=== PATIENT | female | born 1970 | race American Indian/Alaskan Native ===

== ENCOUNTER 2017-01-18 13:43 | Emergency (ER) | payer MEDICAID, OTHER ==
[2017-01-18 14:25] LABS: Basophils % (Auto) 0.3 % (0.0-1.8); Eosinophils % (Auto) 0.1 % (0.0-4.3); Hematocrit 32.2 % (30.3-42.9); Hemoglobin 9.8 gm/dl (10.1-14.3); Mean Corpuscular HGB Conc 30 % (30-34); Mean Corpuscular Volume 78 fl (79-97); Platelet Count 244 K/mm3 (140-440); Red Blood Count 4.14 M/mm3 (3.65-5.03); Red Cell Distribution Width 17.2 % (13.2-15.2); White Blood Count 9.9 K/mm3 (4.5-11.0)
[2017-01-18 14:31] LABS: Mean Corpuscular Hemoglobin 24 pg (28-32)
[2017-01-18 15:33] LABS: Alanine Aminotransferase 10 units/L (7-56); Albumin 3.6 g/dL (3.9-5); Albumin/Globulin Ratio 0.9 %; Alkaline Phosphatase 72 units/L (35-129); Anion Gap 15 mmol/L; BUN/Creatinine Ratio 16; Blood Urea Nitrogen 11 mg/dL (7-17); Calcium 9.1 mg/dL (8.4-10.2); Carbon Dioxide 25 mmol/L (22-30); Chloride 106.2 mmol/L (98-107); Glucose 121 mg/dL (65-100); Lipase 36 units/L (13-60); Potassium 4.2 mmol/L (3.6-5.0); Sodium 142 mmol/L (137-145); Total Protein 7.7 g/dL (6.3-8.2)
[2017-01-18 16:56] LABS: Bilirubin,Urine NEG (Negative); Blood,Urine NEG (Negative); Ketones,Urine NEG (Negative); Leukocyte Esterase,Urine NEG (Negative); Nitrite,Urine NEG (Negative); Protein,Urine <15 mg/dL mg/dL (Negative); WBC,Urine < 1.0 /HPF (0.0-6.0)
[2017-01-18] MEDS ORDERED: MORPHINE IV ONE (21:44)
[2017-01-18] MEDS ORDERED: TORADOL IV ONE (21:44)
[2017-01-18] MEDS ORDERED: ZOFRAN IV ONE (21:44)
[2017-01-18] MEDS ORDERED: NACL 0.9% 1000 ML 1,000 ML IV ONE (21:44)
--- NOTE | 2017-01-18 21:49 | Emergency Department Report ---
HPI - General Chief Complaint: Abdominal Pain Time Seen by Provider: 01/18/17 21:38 - HPI HPI: Room 18 The patient is a 46-year-old female presenting with a chief complaint of left flank pain. The patient states this morning while she was already awake at approximately 08:00 she developed sudden onset of sharp left flank pain radiating to the left abdomen. Patient admits to nausea and vomiting. Patient also missed his dysuria which began this morning. Patient describes pain as sharp and constant in nature. The patient currently gives her pain a score of 10/10 Location: Left flank Duration: Constant since 08:00 Quality: Sharp Severity: 10/10 Modifying factors: [see above] Context: [see above] Mode of transportation: [not driving] ED Past Medical Hx - Past Medical History Previous Medical History?: No Hx Diabetes: No (history of diabetes per patient but has since resolved) - Surgical History Past Surgical History?: Yes Hx Cholecystectomy: Yes - Family History Family history: no significant - Social History Smoking Status: Former Smoker (none for over 5 years) Substance Use Type: None - Medications Home Medications: Home Medications Medication Instructions Recorded Confirmed Last Taken Type Phenazopyridine [Pyridium] 200 mg PO TID #6 tablet 07/12/13 Unknown Rx Sulfamethoxazole/Trimethoprim 1 each PO BID #20 tablet 07/12/13 Unknown Rx [Bactrim Ds] metFORMIN [Glucophage] 500 mg PO BID #60 tablet 07/12/13 Unknown Rx HYDROcodone/ACETAMINOPHEN [[place] 1 - 2 each PO Q4-6H PRN #14 tablet 01/19/17 Unknown Rx 5-325 Tablet] Promethazine [Phenergan TAB] 25 mg PO Q6HR PRN #20 tab 01/19/17 Unknown Rx Promethazine [Phenergan] 25 mg MI Q6HR PRN #5 supp.rect 01/19/17 Unknown Rx ED Review of Systems ROS: Stated complaint: SIDE PAIN/VOMITING Other details as noted in HPI Comment: All other systems reviewed and negative Constitutional: denies: chills, fever Eyes: denies: eye pain, eye discharge, vision change ENT: denies: ear pain, throat pain Respiratory: denies: cough, shortness of breath, wheezing Cardiovascular: denies: chest pain, palpitations Endocrine: no symptoms reported Gastrointestinal: abdominal pain, nausea, vomiting Genitourinary: dysuria. denies: hematuria Musculoskeletal: back pain. denies: joint swelling, arthralgia Skin: denies: rash, lesions Neurological: denies: headache, weakness, paresthesias Psychiatric: denies: anxiety, depression Hematological/Lymphatic: denies: easy bleeding, easy bruising Physical Exam - Physical Exam Vital Signs: Vital Signs 01/18/17 13:55 Temperature 98.7 F Pulse Rate 77 Respiratory 14 Rate Blood Pressure 124/80 [Right] O2 Sat by Pulse 99 Oximetry Physical Exam: GENERAL: The patient is well-developed well-nourished female lying on stretcher not appearing to be in acute distress. [] HEENT: Normocephalic. Atraumatic. Extraocular motions are intact. Patient has moist mucous membranes. NECK: Supple. Trachea midline CHEST/LUNGS: Clear to auscultation. There is no respiratory distress noted. HEART/CARDIOVASCULAR: Regular. There is no tachycardia. There is no gallop rub or murmur. ABDOMEN: Abdomen is soft, with trace discomfort to palpation in the left upper quadrant. Patient has normal bowel sounds. There is no abdominal distention. SKIN: There is no rash. There is no edema. There is no diaphoresis. NEURO: The patient is awake, alert, and oriented. The patient is cooperative. The patient has normal speech MUSCULOSKELETAL: There is left CVA tenderness. There is no evidence of acute injury. ED Course Vital Signs 01/18/17 13:55 Temperature 98.7 F Pulse Rate 77 Respiratory 14 Rate Blood Pressure 124/80 [Right] O2 Sat by Pulse 99 Oximetry ED Medical Decision Making - Lab Data Result diagrams: 01/18/17 14:10 01/18/17 14:10 Laboratory Tests 01/18/17 01/18/17 01/18/17 14:10 14:10 16:17 WBC 9.9 RBC 4.14 Hgb 9.8 L Hct 32.2 MCV 78 L MCH 24 L MCHC 30 RDW 17.2 H Plt Count 244 Lymph % (Auto) 12.0 L [place] % (Auto) 5.3 Eos % (Auto) 0.1 Baso % (Auto) 0.3 Lymph # 1.2 [place] # 0.5 Eos # 0.0 Baso # 0.0 Seg Neutrophils % 82.3 H Seg Neutrophils # 8.2 H Sodium 142 Potassium 4.2 Chloride 106.2 Carbon Dioxide 25 Anion Gap 15 BUN 11 Creatinine 0.7 Estimated GFR > 60 BUN/Creatinine Ratio 16 Glucose 121 H Calcium 9.1 Total Bilirubin 0.20 AST 15 ALT 10 Alkaline Phosphatase 72 Total Protein 7.7 Albumin 3.6 L Albumin/Globulin Ratio 0.9 Lipase 36 Urine Color Yellow Urine Turbidity Clear Urine pH 7.0 Ur Specific [place] 1.014 Urine Protein <15 mg/dl Urine Glucose (UA) Neg Urine Ketones Neg Urine Blood Neg Urine Nitrite Neg Urine Bilirubin Neg Urine Urobilinogen 2.0 Ur Leukocyte Esterase Neg Urine WBC (Auto) < 1.0 Urine RBC (Auto) 1.0 U Epithel Cells (Auto) 1.0 - Radiology Data Radiology results: report reviewed (CT abdomen and pelvis), image reviewed (CT abdomen and pelvis) CT abdomen and pelvis (regular radiologist)-no evidence of renal stones, hydronephrosis or normal renal enhancement. Cholecystectomy. No acute process in the abdomen and pelvis. 3.1 cm left ovarian cyst - Differential Diagnosis renal colic, aortic dissection, pyelonephritis, UTI Critical care attestation.: If time is entered above; I have spent that time in minutes in the direct care of this critically ill patient, excluding procedure time. ED Disposition Clinical Impression: Left flank pain, Left ovarian cyst Disposition: TO HOME OR SELFCARE Is pt being admited?: No Does the pt Need Aspirin: No Condition: Stable Instructions: Abdominal Pain (ED), Ovarian Cyst (ED) Additional Instructions: Return to the emergency department immediately should you develop worsening symptoms, fever, inability to tolerate food or liquid or any other concerns. Prescriptions: HYDROcodone/ACETAMINOPHEN [[place] 5-325 Tablet] 1 - 2 each PO Q4-6H PRN #14 tablet PRN Reason: Pain Promethazine [Phenergan TAB] 25 mg PO Q6HR PRN #20 tab PRN Reason: Nausea Promethazine [Phenergan] 25 mg MI Q6HR PRN #5 supp.rect PRN Reason: Vomiting Referrals: NAVI VIVAR MD [Primary Care Provider] - 3-5 Days Time of Disposition: 00:55
[2017-01-18] MEDS ORDERED: MORPHINE ONE ×3 (21:59→22:36)
[2017-01-18] MEDS ORDERED: SUBLIMAZE IV ONE (23:38)
--- NOTE | 2017-01-19 00:46 | Cat Scan Report ---
FINAL REPORT EXAM: CT ABDOMEN PELVIS WO/W CON HISTORY: left flank pain TECHNIQUE: Pre and post IV contrast imaging was obtained of the abdomen pelvis with additional 1.25 millimeter thin cut imaging. Coronal and parasagittal reconstructions were reviewed also. FINDINGS: The lung bases are clear. There is a small hiatal hernia at the GE junction. Pleural fluid is not seen. The gallbladder has been removed. The biliary tree appears normal. The liver, pancreas, spleen, and adrenal glands appear normal. The kidneys show no evidence of stones or hydronephrosis. Both kidneys enhance normally. The vascular structures enhance normally. The bowel loops are normal in caliber and course. The appendix is not enlarged. There is no evidence of adenopathy. The uterus and bladder appear normal. There is a left ovarian cyst measuring 3.1 cm in diameter. Free fluid is not seen. The skeletal structures are unremarkable. IMPRESSION: No evidence of renal stones, hydronephrosis or abnormal renal enhancement. Cholecystectomy. No acute process in the abdomen and pelvis. 3.1 cm left ovarian cyst.
[2017-01-19 01:21] VITALS: BP 99/68
== END 2017-01-19 01:20 | disposition home or self-care (01) ==
LOC: ED 13:43
DX: N83.202 Unspecified ovarian cyst, left side (principal); R10.12 Left upper quadrant pain; Z90.49 Acquired absence of other specified parts of digestive tract; Z87.891 Personal history of nicotine dependence
CPT/HCPCS: 36415; 74178; 80053; 81001; 83690; 85025; 96361; 96374; 96375; 99284; J1885; J2270; J2405; J3010; J7030; Q9967

== ENCOUNTER 2019-07-14 13:32 | Observation (INO) | payer MEDICAID ==
[2019-07-14] MEDS ORDERED: ASPIRIN 81 MG TAB CHEW PO ONE (13:37)
[2019-07-14] MEDS ORDERED: NITROGLYCERIN 0.4 MG TAB SUBL SL ONE (13:37)
--- NOTE | 2019-07-14 13:37 | Emergency Department Report ---
ED Chest Pain HPI - General Stated Complaint: STV Time Seen by Provider: 07/14/19 13:34 Source: patient Mode of arrival: Stretcher Limitations: No Limitations - History of Present Illness Initial Comments: Ms. Zuniga is a 49-year-old female without significant past medical history who presents with sudden onset of dizziness chest pain mild shortness of breath. She was walking through the house when all of a sudden the symptoms occurred. EMS discovered SVT rate 230 bpm. After 6 mg of adenosine, SVT converted to sinus tachycardia with sinus arrhythmia. Patient had moderately severe pain middle chest. Pain felt as if her heart was going to explode. Pain radiated to left arm. Pain has subsided after treatment. No previous history of heart disease. She receives medical care at [facility]. No known family history of heart disease. Mother is . Father is . Mother had history of hypertension. EMS rhythm strip reveals sinus tachycardia sinus arrhythmia after cardioversion MD Complaint: chest pain -: Sudden Onset: during exertion Pain Location: left chest Severity: moderate Quality: pressure Consistency: now resolved Improves With: other (Adenosine SVT conversion) Worsens With: nothing Other Symptoms: other (Dizziness chest pain) - Related Data Home Medications Medication Instructions Recorded Confirmed Last Taken No Known Home Medications [No 07/14/19 07/14/19 Unknown Reported Home Medications] Allergies Allergy/AdvReac Type Severity Reaction Status Date / Time No Known Allergies Allergy Verified 01/18/17 13:56 Heart Score - HEART Score History: Moderately suspicious EKG: Non-specific Age: 45-65 Risk factors: No known risk factors Troponin: < normal limit HEART Score: 3 ED Review of Systems ROS: Stated complaint: STV Other details as noted in HPI Comment: All other systems reviewed and negative Constitutional: denies: fever, malaise Respiratory: shortness of breath. denies: cough Cardiovascular: chest pain Gastrointestinal: denies: abdominal pain, nausea, vomiting Neurological: denies: headache ED Past Medical Hx - Past Medical History Previous Medical History?: No Hx Diabetes: No (history of diabetes per patient but has since resolved) - Surgical History Past Surgical History?: Yes Hx Cholecystectomy: Yes - Family History Family history: hypertension - Social History Smoking Status: Former Smoker (none for over 5 years) Substance Use Type: None - Medications Home Medications: Home Medications Medication Instructions Recorded Confirmed Last Taken Type No Known Home Medications [No 07/14/19 07/14/19 Unknown History Reported Home Medications] ED Physical Exam - General General appearance: alert, in no apparent distress - Head Head exam: Present: atraumatic, normocephalic - Eye Eye exam: Present: normal appearance - ENT ENT exam: Present: mucous membranes moist - Neck Neck exam: Present: normal inspection, full ROM - Respiratory Respiratory exam: Present: normal lung sounds bilaterally. Absent: respiratory distress, wheezes, rales, rhonchi - Cardiovascular Cardiovascular Exam: Present: normal rhythm, tachycardia, normal heart sounds. Absent: systolic murmur, diastolic murmur, rubs, gallop - GI/Abdominal GI/Abdominal exam: Present: soft, normal bowel sounds. Absent: distended, tenderness, guarding, rebound - Extremities Exam Extremities exam: Present: normal inspection - Neurological Exam Neurological exam: Present: alert, oriented X3 - Psychiatric Psychiatric exam: Present: normal affect, normal mood - Skin Skin exam: Present: warm, dry, intact, normal color. Absent: rash ED Course Vital Signs 07/14/19 07/14/19 07/14/19 13:47 13:56 17:15 Temperature 98 F Pulse Rate 115 H 111 H 82 Respiratory 16 16 Rate Blood Pressure 106/64 106/64 Blood Pressure 111/74 [Left] O2 Sat by Pulse 100 97 Oximetry ED Medical Decision Making - Lab Data Result diagrams: 07/14/19 13:55 07/14/19 13:55 - EKG Data 07/14/19 13:45 EKG obtained 1341 Sinus tachycardia rate 115 bpm normal axis normal intervals no ST elevation nonspecific T wave pattern diffuse biphasic T waves - Radiology Data Radiology results: report reviewed AP portable chest 1 view no significant change no acute findings CT angios chest negative for pulmonary embolism negative for pneumonia - Medical Decision Making Ms. Zuniga presents with lightheadedness pain shortness of breath. EMS discovered SVT heart rate 230 bpm. Converted with adenosine. Due to increasing troponin values, patient will need cardiac evaluation. Admitted to the hospitalist service. Dr. Clark qa manager on-call recommended Lovenox 40 mg daily aspirin and Lexiscan in the morning. Critical care attestation.: If time is entered above; I have spent that time in minutes in the direct care of this critically ill patient, excluding procedure time. ED Disposition Clinical Impression: SVT (supraventricular tachycardia), Acute coronary syndrome Disposition: [id number] OP ADMIT IP TO THIS HOSP Is pt being admited?: Yes Does the pt Need Aspirin: No Condition: Stable
--- NOTE | 2019-07-14 14:08 | XRay Report ---
CHEST 1 VIEW INDICATION / CLINICAL INFORMATION: Chest Pain. COMPARISON: None available. FINDINGS: SUPPORT DEVICES: None. HEART / MEDIASTINUM: No significant abnormality. LUNGS / PLEURA: No significant pulmonary or pleural abnormality. No pneumothorax. ADDITIONAL FINDINGS: No significant additional findings. IMPRESSION: 1. No significant change Signer Name: Ganesh Olivera MD Signed: 07/14/2019 2:03 PM Workstation Name: [id number]
[2019-07-14 14:12] LABS: Basophils # (Auto) 0.1 K/mm3 (0.0-0.1); Eosinophils % (Auto) 0.3 % (0.0-4.3); Hematocrit 35.1 % (30.3-42.9); Hemoglobin 10.8 gm/dl (10.1-14.3); Lymphocytes # (Auto) 0.7 K/mm3 (1.2-5.4); Lymphocytes % (Auto) 9.5 % (13.4-35.0); Mean Corpuscular HGB Conc 31 % (30-34); Mean Corpuscular Volume 78 fl (79-97); Monocytes # (Auto) 0.4 K/mm3 (0.0-0.8); Monocytes % (Auto) 4.6 % (0.0-7.3); Platelet Count 226 K/mm3 (140-440); Red Blood Count 4.52 M/mm3 (3.65-5.03)
[2019-07-14 14:22] LABS: Red Cell Distribution Width 20.2 % (13.2-15.2)
[2019-07-14 14:24] LABS: Alanine Aminotransferase 12 units/L (7-56); Albumin 3.5 g/dL (3.9-5); BUN/Creatinine Ratio 17; Blood Urea Nitrogen 10 mg/dL (7-17); Hemolysis Index 1
--- NOTE | 2019-07-14 17:03 | Cat Scan Report ---
CT angiography of the chest with 2-D reconstructions INDICATION: Chest pain and shortness of breath x1 day Thin section axial images were obtained as well as 2-D reformatted MIP images in all 3 planes FINDINGS: There is no hilar or mediastinal adenopathy. No pleural or pericardial effusion. Lung windo ws show no nodules, masses or infiltrates. There is no thoracic aortic aneurysm or dissection present . Routine axial images as well as 2-D reconstructions through the pulmonary arteries show no evidence of emboli. IMPRESSION: Negative chest CTA. No PTE or pneumonia. Automated exposure control was utilized to diminish radiation dose. Signer Name: Ganesh Olivera MD Signed: 07/14/2019 4:59 PM Workstation Name: [id number]
[2019-07-14 17:33] LABS: Chol/HDL Ratio 3.46 %
[2019-07-14] MEDS ORDERED: ENOXAPARIN 40 MG/0.4 ML INJ SUB-Q ONE (17:38)
--- NOTE | 2019-07-14 20:43 | History and Physical Report ---
History of Present Illness Date of examination: 07/14/19 Date of admission: 07/14/19 17:39 Chief complaint: Chest pain and Palpitations 2 hours History of present illness: 49-year-old female without significant past medical history who presents with sudden onset of dizziness chest pain mild shortness of breath. She was walking through the house when all of a sudden the symptoms occurred. EMS discovered SVT rate 230 bpm. After 6 mg of adenosine, SVT converted to sinus tachycardia with sinus arrhythmia. Patient had moderately severe pain middle chest. Pain felt as if her heart was going to explode. Pain radiated to left arm. Pain has subsided after treat ment. No previous history of heart disease. She receives medical care at [facility]. No known family history of heart disease. Mother is . Father is . Mother had history of hypertension. EMS rhythm strip reveals sinus tachycardia sinus arrhythmia after cardioversion MD Complaint: chest pain -: Sudden Onset: during exertion Pain Location: left chest Severity: moderate Quality: pressure Consistency: now resolved Improves With: other (Adenosine SVT conversion) Worsens With: nothing Other Symptoms: other (Dizziness chest pain) HEART Score: 3 - Past Medical History Previous Medical History?: No Diabetes: No (history of diabetes per patient but has since resolved) Surgical History Past Surgical History?: Yes Hx Cholecystectomy: Yes Family History Family history: hypertension Social History Smoking Status: Former Smoker (none for over 5 years) Substance Use Type: None - Medications Home Medications: Home Medications Medication Instructions Recorded Confirmed Last Taken Type No Known Home Medications [No 07/14/19 07/14/19 Unknown History Reported Home Medications] Review of Systems ROS: Stated complaint: STV Other details as noted in HPI Comment: All other systems reviewed and negative Constitutional: denies: fever, malaise Respiratory: shortness of breath. denies: cough Cardiovascular: chest pain Gastrointestinal: denies: abdominal pain, nausea, vomiting Neurological: denies: headache PUI?: No Medications and Allergies Allergies Allergy/AdvReac Type Severity Reaction Status Date / Time No Known Allergies Allergy Verified 01/18/17 13:56 Home Medications Medication Instructions Recorded Confirmed Last Taken Type No Known Home Medications [No 07/14/19 07/14/19 Unknown History Reported Home Medications] Exam - Constitutional Vitals: Temp Pulse Resp BP Pulse Ox 98 F 80 16 113/68 100 07/14/19 13:47 07/14/19 18:15 07/14/19 18:15 07/14/19 18:15 07/14/19 18:15 General appearance: Present: mild distress, well-nourished - EENT Eyes: Present: PERRL ENT: hearing intact, clear oral mucosa - Neck Neck: Present: supple, normal ROM - Respiratory Respiratory effort: normal Respiratory: bilateral: CTA - Cardiovascular Heart rate: 78 Rhythm: regular Heart Sounds: Present: S1 & S2. Absent: rub, click - Extremities Extremities: no ischemia, pulses intact, pulses symmetrical, No edema Peripheral Pulses: within normal limits - Abdominal General gastrointestinal: Present: soft, non-tender, non-distended, normal bowel sounds Female genitourinary: Present: normal - Rectal Rectal Exam: deferred - Integumentary Integumentary: Present: clear, warm, dry - Musculoskeletal Musculoskeletal: gait normal, strength equal bilaterally - Psychiatric Psychiatric: appropriate mood/affect, intact judgment & insight - Neurologic Neurologic: CNII-XII intact, moves all extremities - Allied Health Allied health notes reviewed: nursing, case management MONTEZ score - Montez Score Aspirin use within the Past 7 Days: (0) No 3 or more CAD Risk Factors: (0) No 2 or more Angina events in past 24 hrs: (0) No Known CAD with more than 50% Stenosis: (0) No ST Deviation Greater than 0.5mm: (0) No Results - Labs CBC & Chem 7: 07/14/19 21:35 07/14/19 13:55 Labs: Laboratory Last Values WBC 7.9 K/mm3 (4.5-11.0) 07/14/19 13:55 RBC 4.52 M/mm3 (3.65-5.03) 07/14/19 13:55 Hgb 10.8 gm/dl (10.1-14.3) 07/14/19 13:55 Hct 35.1 % (30.3-42.9) 07/14/19 13:55 MCV 78 fl (79-97) L 07/14/19 13:55 MCH 24 pg (28-32) L 07/14/19 13:55 MCHC 31 % (30-34) 07/14/19 13:55 RDW 20.2 % (13.2-15.2) H 07/14/19 13:55 Plt Count 226 K/mm3 (140-440) 07/14/19 13:55 Lymph % (Auto) 9.5 % (13.4-35.0) L 07/14/19 13:55 [place] % (Auto) 4.6 % (0.0-7.3) 07/14/19 13:55 Eos % (Auto) 0.3 % (0.0-4.3) 07/14/19 13:55 Baso % (Auto) 1.0 % (0.0-1.8) 07/14/19 13:55 Lymph # 0.7 K/mm3 (1.2-5.4) L 07/14/19 13:55 [place] # 0.4 K/mm3 (0.0-0.8) 07/14/19 13:55 Eos # 0.0 K/mm3 (0.0-0.4) 07/14/19 13:55 Baso # 0.1 K/mm3 (0.0-0.1) 07/14/19 13:55 Seg Neutrophils % 84.6 % (40.0-70.0) H 07/14/19 13:55 Seg Neutrophils # 6.7 K/mm3 (1.8-7.7) 07/14/19 13:55 D-Dimer 508.23 ng/mlDDU (0-234) H 07/14/19 13:55 Sodium 137 mmol/L (137-145) 07/14/19 13:55 Potassium 3.9 mmol/L (3.6-5.0) 07/14/19 13:55 Chloride 105.4 mmol/L (98-107) 07/14/19 13:55 Carbon Dioxide 17 mmol/L (22-30) L 07/14/19 13:55 Anion Gap 19 mmol/L 07/14/19 13:55 BUN 10 mg/dL (7-17) 07/14/19 13:55 Creatinine 0.6 mg/dL (0.7-1.2) L 07/14/19 13:55 Estimated GFR > 60 ml/min 07/14/19 13:55 BUN/Creatinine Ratio 17 % 07/14/19 13:55 Glucose 189 mg/dL (65-100) H 07/14/19 13:55 Calcium 9.0 mg/dL (8.4-10.2) 07/14/19 13:55 Total Bilirubin 0.20 mg/dL (0.1-1.2) 07/14/19 13:55 AST 19 units/L (5-40) 07/14/19 13:55 ALT 12 units/L (7-56) 07/14/19 13:55 Alkaline Phosphatase 82 units/L (35-129) 07/14/19 13:55 Troponin T 0.032 ng/mL (0.00-0.029) H D 07/14/19 16:42 NT-Pro-B Natriuret Pep 7.45 pg/mL (0-450) 07/14/19 13:55 Total Protein 8.2 g/dL (6.3-8.2) 07/14/19 13:55 Albumin 3.5 g/dL (3.9-5) L 07/14/19 13:55 Albumin/Globulin Ratio 0.7 % 07/14/19 13:55 Triglycerides 114 mg/dL (2-149) 07/14/19 16:42 Cholesterol 135 mg/dL (50-199) 07/14/19 16:42 LDL Cholesterol Direct 88 mg/dL (50-130) 07/14/19 16:42 HDL Cholesterol 39 mg/dL (40-59) L 07/14/19 16:42 Cholesterol/HDL Ratio 3.46 % 07/14/19 16:42 Short CBC 07/14/19 07/14/19 Range/Units 13:55 21:35 WBC 7.9 (4.5-11.0) K/mm3 Hgb 10.8 9.6 L (10.1-14.3) gm/dl Hct 35.1 31.2 (30.3-42.9) % Plt Count 226 237 (140-440) K/mm3 BMP 07/14/19 13:55 Sodium 137 Potassium 3.9 Chloride 105.4 Carbon Dioxide 17 L BUN 10 Creatinine 0.6 L Glucose 189 H Calcium 9.0 Cardiac Enzymes 07/14/19 07/14/19 07/14/19 Range/Units 13:55 16:42 21:20 Troponin T < 0.010 0.032 H D < 0.010 (0.00-0.029) ng/mL 07/15/19 Range/Units 04:37 Troponin T < 0.010 (0.00-0.029) ng/mL Liver Function 07/14/19 Range/Units 13:55 Total Bilirubin 0.20 (0.1-1.2) mg/dL AST 19 (5-40) units/L ALT 12 (7-56) units/L Alkaline Phosphatase 82 (35-129) units/L Albumin 3.5 L (3.9-5) g/dL - Imaging and Cardiology EKG: report reviewed (SVT ) Chest x-ray: report reviewed (NAF) CT scan - abdomen: report reviewed Imaging and Cardiology: CTA chest FINDINGS: There is no hilar or mediastinal adenopathy. No pleural or pericardial effusion. Lung windows show no nodules, masses or infiltrates. There is no thoracic aortic aneurysm or dissection present. Routine axial images as well as 2-D reconstructions through the pulmonary arteries show no evidence of emboli. IMPRESSION: Negative chest CTA. No PTE or pneumonia. Assessment and Plan Advance Directives: Yes - Patient Problems (1) Acute coronary syndrome Current Visit: Yes Status: Acute Plan to address problem: Chest pain w/u Chest pain sec to SVT Serial troponins Stress test in AM (2) SVT (supraventricular tachycardia) Current Visit: Yes Status: Acute Plan to address problem: Resolved Cardizem drip PO Cardizem initiated Cardiology consult (3) NSTEMI (non-ST elevated myocardial infarction) Current Visit: Yes Status: Acute Plan to address problem: Elevated second troponin IV Heparin started (4) DVT prophylaxis Current Visit: Yes Status: Acute Plan to address problem: On Heparin drip
[2019-07-14] MEDS ORDERED: ACETAMINOPHEN 325 MG TAB PO PRN (21:00)
[2019-07-14] MEDS ORDERED: ONDANSETRON 4 MG/2 ML INJ IV PRN (21:00)
[2019-07-14] MEDS ORDERED: HYDROmorphone 1 MG/1 ML INJ IV PRN (21:00)
[2019-07-14] MEDS ORDERED: SODIUM CHLORIDE 0.9% 1000 ML 1,000 ML IV SCH (21:00)
[2019-07-14] MEDS ORDERED: oxyCODONE /ACETAMINOPHEN 5-325MG TAB PO PRN (21:00)
[2019-07-14] MEDS ORDERED: HEPARIN 10,000 UNITS/10 ML VIAL IV ONE ×2 (21:29→22:00)
[2019-07-14] MEDS ORDERED: dilTIAZem/D5W 100 MG/100 ML BAG IV SCH (22:00)
[2019-07-14] MEDS ORDERED: HEPARIN/ 0.45% NACL DRIP 25,000 UNIT/500 ML BAG IV SCH (22:00)
[2019-07-14 22:03] LABS: Hematocrit 31.2 % (30.3-42.9); Hemoglobin 9.6 gm/dl (10.1-14.3)
[2019-07-14 22:13] LABS: INR 0.93 (0.87-1.13)
[2019-07-14 22:14] LABS: Partial Thromboplastin Time 23.2 Sec. (24.2-36.6)
[2019-07-14] MEDS: FAMOTIDINE 20 MG TAB PO SCH (23:45)
[2019-07-14] MEDS: dilTIAZem CD 120 MG CAP PO SCH (23:45)
[2019-07-15] MEDS: INSULIN LISPRO 100 UNIT/ML SUB-Q SCH ×3 (00:06→12:35)
[2019-07-15] MEDS ORDERED: REGADENOSON 0.4 MG/5 ML INJ IV ONE (07:29)
--- NOTE | 2019-07-15 10:55 | Consultation ---
History of Present Illness Consult date: 07/15/19 Requesting physician: JENNY BROWN Consult reason: other (SVT; ACS) History of present illness: The pt is a 49-year-old female with no known significant past medical history. She presented with c/o sudden onset of dizziness, chest pain and palpations. She was walking through the house when all of a sudden the symptoms occurred. Upon EMS arrival, pt found to be in SVT with HR 230 bpm. Pt was given 6mg IV adenosine and converted to ST. Pt maintained NSR overnight and was scheduled for stress test today. Past History Past Medical History: No medical history Medications and Allergies Allergies Allergy/AdvReac Type Severity Reaction Status Date / Time No Known Allergies Allergy Verified 01/18/17 13:56 Home Medications Medication Instructions Recorded Confirmed Last Taken Type No Known Home Medications [No 07/14/19 07/14/19 Unknown History Reported Home Medications] Active Meds: Active Medications Acetaminophen (Tylenol) 650 mg PO Q4H PRN PRN Reason: Pain MILD(1-3)/Fever >100.5/DUQUE Diltiazem HCl (Cardizem Cd) 120 mg PO QDAY RIOS Last Admin: 07/14/19 23:45 Dose: 120 mg Documented by: Famotidine (Pepcid) 20 mg PO BID RIOS Last Admin: 07/14/19 23:45 Dose: 20 mg Documented by: Hydromorphone HCl (Dilaudid) 0.5 mg IV Q3H PRN PRN Reason: Pain , Severe (7-10) Sodium Chloride (Nacl 0.9% 1000 Ml) 1,000 mls @ 75 mls/hr IV DIRECT RIOS Last Admin: 07/15/19 00:40 Dose: 75 mls/hr Documented by: Diltiazem HCl (Cardizem/D5w 100mg/100ml) 100 mg in 100 mls @ 5 mls/hr IV TITR RIOS Heparin Sodium/Sodium Chloride (Heparin/ 0.45% Nacl-25,000 Unit/500 Ml) 25,000 unit in 500 mls @ 20 mls/hr IV TITRATE RIOS; Protocol Last Admin: 07/15/19 00:11 Dose: 1,000 units/hr, 20 mls/hr Documented by: Insulin Human Lispro (Humalog) 0 unit SUB-Q ACHS RIOS; Protocol Last Admin: 07/15/19 09:34 Dose: Not Given Documented by: Ondansetron HCl (Zofran) 4 mg IV Q8H PRN PRN Reason: Nausea And Vomiting Oxycodone/Acetaminophen (Percocet 5/325) 1 tab PO Q6H PRN PRN Reason: Pain, Moderate (4-6) Sodium Chloride (Sodium Chloride Flush Syringe 10 Ml) 10 ml IV BID RIOS Last Admin: 07/14/19 23:45 Dose: 10 ml Documented by: Sodium Chloride (Sodium Chloride Flush Syringe 10 Ml) 10 ml IV PRN PRN PRN Reason: LINE FLUSH Review of Systems Constitutional: no weight loss, no weight gain, no fever, no chills, no sweats Ears, nose, mouth and throat: no ear pain, no nose pain, no sinus pressure, no sinus pain Cardiovascular: chest pain, palpitations, lightheadedness, shortness of breath, no orthopnea, no edema, no syncope, no high blood pressure Respiratory: no cough, no congestion, no wheezing, no pain on inspiration Gastrointestinal: no abdominal pain, no nausea, no vomiting, no diarrhea, no c onstipation, no change in bowel habits Genitourinary Female: no pelvic pain, no flank pain, no dysuria, no urinary frequency, no urgency Musculoskeletal: no neck stiffness, no neck pain, no shooting arm pain, no arm numbness/tingling, no low back pain, no shooting leg pain Integumentary: no rash, no pruritis, no redness, no sores, no wounds Neurological: no head injury, no paralysis, no weakness, no parathesias, no numbness, no tingling, no seizures, no syncope Psychiatric: no anxiety Endocrine: no cold intolerance, no heat intolerance Hematologic/Lymphatic: no easy bruising Allergic/Immunologic: no urticaria Physical Examination Vital Signs Temp Pulse Resp BP Pulse Ox 98 F 115 H 16 106/64 100 07/14/19 13:47 07/14/19 13:47 07/14/19 13:47 07/14/19 13:47 07/14/19 13:47 General appearance: no acute distress HEENT: Positive: PERRL, Normocephaly, Mucus Membranes Moist Neck: Positive: neck supple, trachea midline Cardiac: Positive: Reg Rate and Rhythm, S1/S2 Lungs: Positive: Decreased Breath Sounds Neuro: Positive: Grossly Intact Abdomen: Negative: Tender Skin: Negative: Rash Musculoskeletal: No Pain Extremities: Absent: edema Results 07/14/19 21:35 07/14/19 13:55 Cardiac Enzymes 07/14/19 Range/Units 13:55 AST 19 (5-40) units/L Coagulation 07/14/19 Range/Units 21:35 PT 12.6 (12.2-14.9) Sec. INR 0.93 (0.87-1.13) APTT 23.2 L (24.2-36.6) Sec. Lipids 07/14/19 Range/Units 16:42 Triglycerides 114 (2-149) mg/dL Cholesterol 135 (50-199) mg/dL HDL Cholesterol 39 L (40-59) mg/dL Cholesterol/HDL Ratio 3.46 % CBC 07/14/19 07/14/19 Range/Units 13:55 21:35 WBC 7.9 (4.5-11.0) K/mm3 RBC 4.52 (3.65-5.03) M/mm3 Hgb 10.8 9.6 L (10.1-14.3) gm/dl Hct 35.1 31.2 (30.3-42.9) % Plt Count 226 237 (140-440) K/mm3 Lymph # 0.7 L (1.2-5.4) K/mm3 [place] # 0.4 (0.0-0.8) K/mm3 Eos # 0.0 (0.0-0.4) K/mm3 Baso # 0.1 (0.0-0.1) K/mm3 Comprehensive Metabolic Panel 07/14/19 Range/Units 13:55 Sodium 137 (137-145) mmol/L Potassium 3.9 (3.6-5.0) mmol/L Chloride 105.4 (98-107) mmol/L Carbon Dioxide 17 L (22-30) mmol/L BUN 10 (7-17) mg/dL Creatinine 0.6 L (0.7-1.2) mg/dL Glucose 189 H (65-100) mg/dL Calcium 9.0 (8.4-10.2) mg/dL AST 19 (5-40) units/L ALT 12 (7-56) units/L Alkaline Phosphatase 82 (35-129) units/L Total Protein 8.2 (6.3-8.2) g/dL Albumin 3.5 L (3.9-5) g/dL - Imaging and Cardiology EKG: report reviewed, image reviewed EKG interpretations - Telemetry EKG Rhythm: Sinus Rhythm - EKG Sinus rhythms and dysrhythmias: sinus rhythm Assessment and Plan DDimer elevated - Chest CTA negative for PE. Troponin minimally elevated x 1 set, otherwise Joe negative for AMI. D/c heparin gtt. Pt has maintained NSR since admission. Agree with PO dinora. S/p lexiscan MPI stress test today which was negative. Currently stable cardiac status. Pt may discharge from cardiology standpoint. Can consider SVT ablation as OP. Recommend follow up in our office with Dr. Cash within 2 weeks of discharge ([phone]). The patient has been seen in conjunction with Dr. Cahs who agrees with the assessment and plan of care. - Patient Problems (1) SVT (supraventricular tachycardia) Current Visit: Yes Status: Acute (2) Elevated troponin Current Visit: Yes Status: Acute
[2019-07-15] MEDS ORDERED: FLU VACC QUAD 2019-20 (3 YR UP)/PF 60 MCG/0.5 ML SYRINGE IM ONE (12:00)
--- NOTE | 2019-07-15 12:27 | Treadmill Report ---
NUCLEAR PERFUSION STUDY IMAGING PROTOCOL: The patient received 10 mCi of Technetium 99m Tetrofosmin for resting image and 28 mCi of Technetium 99m Tetrofosmin for stress imaging. The imaging for the whole procedure was completed 30-90 minutes following the initial injection of Technetium 99m Tetrofosmin. The SPECT imaging in the 180 degree arc was performed in the right anterior oblique projection. Computerized reconstruction of the images was performed for analysis. IMAGING RESULTS: Normal cavity size from stress to rest. Normal distribution of radionuclide in the anterior, inferior, septal, and apical regions. Gated SPECT, EF 59% with no wall motion abnormality. The patient infused Lexiscan with no EKG change or arrhythmia. SUMMARY: 1. Negative Lexiscan EKG. 2. Normal rest and stress myocardial perfusion scan. No significant ischemia. No wall motion abnormality. Gated SPECT, EF 59%. JOB# [id number] ROSINA/TAMIA
[2019-07-15] MEDS: FAMOTIDINE 20 MG TAB PO SCH (12:28)
[2019-07-15] MEDS: dilTIAZem CD 120 MG CAP PO SCH (12:28)
[2019-07-15 12:30] VITALS: BP 119/65
--- NOTE | 2019-07-15 13:02 | Discharge Summary ---
Providers - Providers Date of Admission: 07/14/19 17:39 Date of discharge: 07/15/19 Attending physician: ANIA JOLLEY 07/14/19 17:38 Consult to Physician [CONS] Stat Comment: Consulting Provider: LINDA BURROUGHS Physician Instructions: Reason For Exam: SVT ACS [facility] Hospitalization Condition: Stable Hospital course: Patient is a 49 yo woman without chronic medical problems who presents with sudden onset of chest pains, SOB and dizziness. As reported, She was walking through the house when all of a sudden the symptoms occurred. EMS discovered SVT heart rate of 230 bpm. After 6 mg of adenosine, SVT converted to sinus tachycardia with sinus arrhythmia. * CTA chest FINDINGS: There is no hilar or mediastinal adenopathy. No pleural or pericardial effusion. Lung windows show no nodules, masses or infiltrates. There is no thoracic aortic aneurysm or dissection present. Routine axial images as well as 2-D reconstructions through the pulmonary arteries show no evidence of emboli. IMPRESSION: Negative chest CTA. No PTE or pneumonia. 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 SVT: consider SVT ablation as outpatient isolated Elevated troponin, ruled out NSTEMI, ruled out ACS Morbid Obesity, BMI 42.5: Lifestyle modifications Disposition: DC-01 TO HOME OR SELFCARE Time spent for discharge: 35 minutes Core Measure Documentation - Palliative Care Palliative Care/ Comfort Measures: Not Applicable - Core Measures Any of the following diagnoses?: none - VTE Discharge Requirements Deep Vein Thrombosis/Pulmonary Embolism Present on Admission: No Has pt received <5 days of overlap therapy or INR<2.0: No Anticoagulant overlap therapy prescribed at discharge: No Contraindication No Overlap Therapy order at DC: Not Indicated Exam - Physical Exam Narrative exam: Gen: WDWN, NAD, Awake, Alert, Orientated x 3, bmi 42.5 HEENT: NCAT, EOMI, PERRL, OP Clear Neck: supple, no adenopathy, no thyromegaly, no JVD CVS/Heart: RRR, normal S1S2, pulses present bilaterally Chest/Lungs: CTA B, Symmetrical chest expansion, good air entry bilaterally GI/Abdomen: soft, NTND, good bowel sounds, no guarding or rebound /Bladder: no suprapubic tenderness, no CVA or paraspinal tenderness Extermity/Skin: no c/c/e, no obvious rash MSK: FROM x 4 Neuro: CN 2-12 grossly intact, no new focal deficits Psych: calm - Constitutional Vitals: Temp Pulse Resp BP Pulse Ox 99.0 F 79 18 119/65 100 07/15/19 08:25 07/15/19 12:28 07/15/19 08:25 07/15/19 12:28 07/15/19 08:25 Plan Activity: up only with assistance Diet: low salt Special Instructions: record daily BP diary Follow up with: PAT MILLERDOWELL MD EMILY [Primary Care Provider] - 7 Days LINDA BURROUGHS MD [Staff Physician] - 7 Days Prescriptions: dilTIAZem CD [Cardizem CD] 120 mg PO QDAY #30 capsule Famotidine [Pepcid] 20 mg PO BID #30 tablet
== END 2019-07-15 16:44 | disposition home or self-care (01) ==
LOC: ED 13:32 → 4A 17:39
PROVIDERS: ADMIT Internal Medicine; ATTEND Internal Medicine
DX: I24.9 Acute ischemic heart disease, unspecified (principal); I47.1 Supraventricular tachycardia; I21.4 Non-ST elevation (NSTEMI) myocardial infarction; R79.89 Other specified abnormal findings of blood chemistry; E66.01 Morbid (severe) obesity due to excess calories; Z23 Encounter for immunization; Z68.41 Body mass index [BMI] 40.0-44.9, adult
CPT/HCPCS: 36415; 71045; 71275; 78452; 80053; 80061; 82962; 83036; 83880; 84484; 85014; 85018; 85025; 85049; 85379; 85520; 85610; 85730; 90471; 90686; 93005; 93010; 93017; 96365; 96366; 96372; 96376; 99285; A9502; G0378; J1644; J1650; J2785; J7030; Q9967

== ENCOUNTER 2019-07-19 14:50 | Emergency (ER) | payer MEDICAID ==
--- NOTE | 2019-07-19 15:21 | Emergency Department Report ---
ED Palpitations HPI - General Stated Complaint: CHEST PAIN Time Seen by Provider: 07/19/19 15:06 Source: patient Mode of arrival: Stretcher Limitations: No Limitations - History of Present Illness Initial Comments: 49-year-old female with history of SVT presents to ED with palpitations. Patient reports symptoms started approximately 1 hour ago. Patient states she was doing her daughter's hair, then got up to walk to the bathroom. At that time she began to experience heart racing, chest pain with radiation into the left arm. EMS arrived and found patient to be in SVT with a rate of about 200. Patient converted with 6 mg of adenosine. Patient currently in sinus rhythm. She reports resolution of her pain, she is currently chest pain-free. Patient was discharged 4 days ago for same. She was admitted following a SVT episode due to elevation of troponin. Patient underwent stress testing which was normal. She was discharged home on diltiazem which she reports she has been compliant with. Patient denies fever, cough, shortness of breath, vomiting, diarrhea, loss of sense of smell or taste. MD Complaint: "heart racing" -: hour(s) (1) Context: occured during rest Arrythmia History: SVT Associated Symptoms: chest pain, shortness of breath - Related Data Previous Rx's Medication Instructions Recorded Last Taken Type Acetaminophen [Acetaminophen TAB] 325 mg PO Q4H PRN #15 tablet 07/15/19 Unknown Rx Famotidine [Pepcid] 20 mg PO BID #30 tablet 07/15/19 Unknown Rx dilTIAZem CD [Cardizem CD] 120 mg PO QDAY #30 capsule 07/15/19 Unknown Rx Allergies Allergy/AdvReac Type Severity Reaction Status Date / Time No Known Allergies Allergy Verified 07/19/19 15:25 ED Review of Systems ROS: Stated complaint: CHEST PAIN Other details as noted in HPI Comment: All other systems reviewed and negative Constitutional: denies: chills, fever Respiratory: shortness of breath. denies: cough Cardiovascular: chest pain, palpitations Gastrointestinal: denies: vomiting, diarrhea ED Past Medical Hx - Past Medical History Hx Congestive Heart Failure: No Hx Diabetes: No (history of diabetes per patient but has since resolved) Hx Asthma: No Hx COPD: No - Surgical History Hx Cholecystectomy: Yes - Social History Smoking Status: Former Smoker - Medications Home Medications: Home Medications Medication Instructions Recorded Confirmed Last Taken Type Acetaminophen [Acetaminophen TAB] 325 mg PO Q4H PRN #15 tablet 07/15/19 Unknown Rx Famotidine [Pepcid] 20 mg PO BID #30 tablet 07/15/19 Unknown Rx dilTIAZem CD [Cardizem CD] 120 mg PO QDAY #30 capsule 07/15/19 Unknown Rx ED Physical Exam - General General appearance: alert, in no apparent distress, obese - Head Head exam: Present: atraumatic, normocephalic - Eye Eye exam: Present: normal appearance, EOMI - ENT ENT exam: Present: mucous membranes moist - Neck Neck exam: Present: normal inspection - Respiratory Respiratory exam: Present: normal lung sounds bilaterally. Absent: respiratory distress - Cardiovascular Cardiovascular Exam: Present: regular rate, normal rhythm - GI/Abdominal GI/Abdominal exam: Present: soft. Absent: distended, tenderness - Extremities Exam Extremities exam: Present: normal inspection - Neurological Exam Neurological exam: Present: alert, oriented X3 - Psychiatric Psychiatric exam: Present: normal affect, normal mood - Skin Skin exam: Present: warm, dry, intact, normal color ED Course Vital Signs 07/19/19 07/19/19 07/19/19 14:57 15:02 15:15 Temperature 98.6 F Pulse Rate 113 H Respiratory 20 Rate Blood Pressure 128/78 121/77 Blood Pressure 128/78 [Left] O2 Sat by Pulse 99 100 98 Oximetry 07/19/19 07/19/19 07/19/19 15:30 15:45 16:00 Temperature Pulse Rate 103 H 100 H 96 H Respiratory 12 21 17 Rate Blood Pressure 113/83 112/81 106/69 Blood Pressure [Left] O2 Sat by Pulse 98 98 98 Oximetry 07/19/19 07/19/19 07/19/19 16:15 16:31 16:45 Temperature Pulse Rate 95 H 93 H 90 Respiratory 12 19 19 Rate Blood Pressure 110/77 103/63 92/63 Blood Pressure [Left] O2 Sat by Pulse 99 97 99 Oximetry 07/19/19 07/19/19 17:00 17:15 Temperature Pulse Rate 96 H 93 H Respiratory 22 18 Rate Blood Pressure 102/72 102/72 Blood Pressure [Left] O2 Sat by Pulse 99 99 Oximetry ED Medical Decision Making - Lab Data Result diagrams: 07/19/19 15:17 07/19/19 15:17 - EKG Data -: EKG Interpreted by Me EKG shows normal: sinus rhythm, axis, intervals, QRS complexes, ST-T waves Rate: tachycardia (rate 115) - Radiology Data Radiology results: report reviewed, image reviewed - Medical Decision Making - SVT resolved - troponin negative - symptoms resolved - pt had stress 4 test days ago which was normal - will d/c home - spoke w/ pt regarding vagal maneuvers if SVT returns - outpatient follow-up advised; return precautions given I reviewed chart after patient was had been discharged by me. Patient was discharged at 1625, however there is another troponin 0.019, that resulted at 1722. It is slightly elevated, but remains in normal range. This is likely due to her SVT. Patient had a stress test on July 14 which was normal. Patient had previous troponin leak (0.032) due to her SVT during her last admission. She has already been advised to follow-up with cardiology - Differential Diagnosis SVT, ACS Critical care attestation.: If time is entered above; I have spent that time in minutes in the direct care of this critically ill patient, excluding procedure time. ED Disposition Clinical Impression: SVT (supraventricular tachycardia) Disposition: DC-01 TO HOME OR SELFCARE Is pt being admited?: No Condition: Stable Instructions: Supraventricular Tachycardia (ED) Referrals: PRIMARY CAREMD [Primary Care Provider] - 3-5 Days ANGEL MERA MD [Staff Physician] - 3-5 Days Time of Disposition: 16:25
[2019-07-19 15:32] LABS: Basophils % (Auto) 0.3 % (0.0-1.8); Eosinophils % (Auto) 0.1 % (0.0-4.3); Hematocrit 34.2 % (30.3-42.9); Hemoglobin 10.6 gm/dl (10.1-14.3); Lymphocytes # (Auto) 0.8 K/mm3 (1.2-5.4); Lymphocytes % (Auto) 12.5 % (13.4-35.0); Mean Corpuscular HGB Conc 31 % (30-34); Mean Corpuscular Volume 77 fl (79-97); Monocytes # (Auto) 0.3 K/mm3 (0.0-0.8); Monocytes % (Auto) 4.7 % (0.0-7.3); Platelet Count 224 K/mm3 (140-440); Red Blood Count 4.46 M/mm3 (3.65-5.03)
[2019-07-19 15:37] LABS: Red Cell Distribution Width 20.2 % (13.2-15.2)
[2019-07-19 15:42] LABS: INR 0.96 (0.87-1.13)
[2019-07-19 15:43] LABS: BUN/Creatinine Ratio 13; Blood Urea Nitrogen 8 mg/dL (7-17); Calcium 9.2 mg/dL (8.4-10.2); Hemolysis Index 1; Partial Thromboplastin Time 22.5 Sec. (24.2-36.6)
--- NOTE | 2019-07-19 15:56 | XRay Report ---
CHEST 1 VIEW INDICATION: MAIN: palpitations; Pt to ED via CCM#11, for evaluation of sudden onset of rapid HR. Per EMS upon ar rival pt HR 245-SVT, adenosine 6mg IVP given, pt's HR decreased to 110 (sinus tachy).. COMPARISON: 07/14/2019 FINDINGS: Support devices: None. Heart: Within normal limits. Lungs/Pleura: No acute air space or interstitial disease. Additional findings: None. IMPRESSION: 1. No acute findings. Signer Name: Nehemiah Crespo MD Signed: 07/19/2019 3:51 PM Workstation Name: [id number]
[2019-07-19 19:07] VITALS: BP 102/72
== END 2019-07-19 17:00 | disposition home or self-care (01) ==
LOC: ED 14:50
DX: I47.1 Supraventricular tachycardia (principal); Z90.49 Acquired absence of other specified parts of digestive tract; Z87.891 Personal history of nicotine dependence
CPT/HCPCS: 36415; 71045; 80048; 84484; 85025; 85610; 85730; 93005; 93010

== ENCOUNTER 2019-11-28 22:42 | Emergency (ER) | payer MEDICAID ==
[2019-11-28 23:08] VITALS: BP 127/78
--- NOTE | 2019-11-28 23:13 | Emergency Department Report ---
ED Palpitations HPI - General Stated Complaint: CHEST PAIN Time Seen by Provider: 11/28/19 23:04 Source: patient Mode of arrival: Stretcher Limitations: No Limitations - History of Present Illness Initial Comments: This is a 49-year-old female with history of SVT, hypertension, diabetes mellitus who presents with rapid heartbeat chest pain chest pain arm pain neck pain. EMS discovered SVT rate 180 bpm. SVT converted to sinus tachycardia after 6 mg of adenosine. . . According to electronic record she was previously discharged with prescription for diltiazem 120 mg/day. Patient states that she has been compliant with all medications. She has been in good health. The symptoms occurred suddenly 30 minutes prior to arrival. She is currently symptom-free right now. Patient has not followed up with animal doctor. She is only followed at [facility]. According to electronic record, on July 15, 2019, patient had normal myocardial perfusion scan ejection fraction 59% MD Complaint: rapid heart beat -: Sudden, minutes(s) (20 minutes prior to arrival) Context: occured during rest Arrythmia History: SVT Associated Symptoms: chest pain Treatments Prior to Arrival: adenosine (6 mg given per EMS) - Related Data Previous Rx's Medication Instructions Recorded Last Taken Type Acetaminophen [Acetaminophen TAB] 325 mg PO Q4H PRN #15 tablet 07/15/19 Unknown Rx Famotidine [Pepcid] 20 mg PO BID #30 tablet 07/15/19 Unknown Rx dilTIAZem CD [Cardizem CD] 120 mg PO QDAY #30 capsule 07/15/19 Unknown Rx Allergies Allergy/AdvReac Type Severity Reaction Status Date / Time No Known Allergies Allergy Verified 07/19/19 15:25 ED Review of Systems ROS: Stated complaint: CHEST PAIN Other details as noted in HPI Comment: All other systems reviewed and negative Constitutional: denies: fever, malaise Respiratory: denies: shortness of breath Cardiovascular: chest pain, palpitations ED Past Medical Hx - Past Medical History Previous Medical History?: Yes Hx Hypertension: Yes Hx Congestive Heart Failure: No Hx Diabetes: No (history of diabetes per patient but has since resolved) Hx Asthma: No Hx COPD: No Additional medical history: SVT 07/2019 - Surgical History Hx Cholecystectomy: Yes - Social History Smoking Status: Former Smoker - Medications Home Medications: Home Medications Medication Instructions Recorded Confirmed Last Taken Type Acetaminophen [Acetaminophen TAB] 325 mg PO Q4H PRN #15 tablet 07/15/19 Unknown Rx Famotidine [Pepcid] 20 mg PO BID #30 tablet 07/15/19 Unknown Rx dilTIAZem CD [Cardizem CD] 120 mg PO QDAY #30 capsule 07/15/19 Unknown Rx ED Physical Exam - General General appearance: alert, in no apparent distress - Head Head exam: Present: atraumatic, normocephalic - Eye Eye exam: Present: normal appearance - ENT ENT exam: Present: mucous membranes moist - Neck Neck exam: Present: normal inspection, full ROM - Respiratory Respiratory exam: Present: normal lung sounds bilaterally. Absent: respiratory distress, wheezes, rales, rhonchi - Cardiovascular Cardiovascular Exam: Present: regular rate, normal rhythm, normal heart sounds. Absent: systolic murmur, diastolic murmur, rubs, gallop - GI/Abdominal GI/Abdominal exam: Present: soft, normal bowel sounds. Absent: distended, tenderness, guarding, rebound - Extremities Exam Extremities exam: Present: normal inspection - Neurological Exam Neurological exam: Present: alert, oriented X3 - Psychiatric Psychiatric exam: Present: normal affect, normal mood - Skin Skin exam: Present: warm, dry, intact, normal color. Absent: rash ED Course Vital Signs 11/28/19 23:02 Temperature 98.7 F Pulse Rate 107 H Respiratory 16 Rate Blood Pressure 127/78 [left arm] O2 Sat by Pulse 98 Oximetry ED Medical Decision Making - Lab Data Result diagrams: 11/29/19 00:08 - EKG Data -: EKG Interpreted by Me EKG shows normal: sinus rhythm, axis, intervals, QRS complexes, ST-T waves Rate: tachycardia - EKG Data Interpretation: no acute changes, normal EKG - Medical Decision Making Ms. Zuniga presents with recurrent SVT. I do not suspect pulmonary was him ACLS. Patient symptoms subsided after SVT. 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 Patient will benefit from evaluation by capital equipment specialist. I strongly encouraged her to follow-up with animal doctor. Patient states that she has been compliant with blood pressure m edicine. She is unclear if she is taking calcium channel jerod which was prescribed in July. I strongly encouraged her to follow-up with animal doctor. Critical care attestation.: If time is entered above; I have spent that time in minutes in the direct care of this critically ill patient, excluding procedure time. ED Disposition Clinical Impression: SVT (supraventricular tachycardia) Disposition: DC-01 TO HOME OR SELFCARE Is pt being admited?: No Does the pt Need Aspirin: No Condition: Stable Instructions: Supraventricular Tachycardia (ED) Referrals: DECLAN PATEL MD [Staff Physician] - 3-5 Days
[2019-11-29 00:55] LABS: BUN/Creatinine Ratio 17; Blood Urea Nitrogen 10 mg/dL (7-17); Calcium 9.2 mg/dL (8.4-10.2); Hemolysis Index 0
== END 2019-11-29 01:35 | disposition home or self-care (01) ==
LOC: ED 22:42
DX: I47.1 Supraventricular tachycardia (principal); I10 Essential (primary) hypertension; Z90.49 Acquired absence of other specified parts of digestive tract; Z87.891 Personal history of nicotine dependence; Z79.899 Other long term (current) drug therapy
CPT/HCPCS: 36415; 80048; 83735; 84100; 93005

== ENCOUNTER 2020-12-03 20:10 | Emergency (ER) | payer MEDICAID ==
[2020-12-03 20:50] VITALS: BP 146/83
--- NOTE | 2020-12-04 02:17 | Emergency Department Report ---
ED General Adult HPI - General Chief complaint: Sore Throat Stated complaint: SORE THROAT Source: patient Mode of arrival: Ambulatory Limitations: No Limitations - History of Present Illness Initial comments: Patient is a 50-year-old -[place] female with a history of morbid obesity, hypertension, xta-plpspag-[id number] diabetes and SVT s/p ablation who presents to the ED with complaint of acute onset persistent nasal and sinus congestion, frontal sinus pressure and headache, sore throat, bilateral ear pain and mild dry cough for the last 3 days. Patient states that she has been taking stel-bkp-[id number] medications with no relief. Patient states that no one else at home has had similar symptoms. Patient states that she is fully vaccinated against COVID-19 viral infection. Patient denies dizziness, syncope, nausea and vomiting or diarrhea, chest pain, shortness of breath, change in vision, fever and chills. MD Complaint: Sore throat; nasal and sinus congestion; cough, bilateral ear pain -: Sudden, days(s) (3) Location: face Radiation: non-radiation Severity scale (0 -10): 7 Quality: aching, dull Consistency: constant Improves with: none Worsens with: none Associated Symptoms: denies other symptoms, cough, headaches, loss of appetite. denies: confusion, diaphoresis, fever/chills, malaise, nausea/vomiting, rash, seizure, syncope, weakness, other Treatments Prior to Arrival: none - Related Data Previous Rx's Medication Instructions Recorded Last Taken Type Acetaminophen [Acetaminophen TAB] 325 mg PO Q4H PRN #15 tablet 07/15/19 Unknown Rx Famotidine [Pepcid] 20 mg PO BID #30 tablet 07/15/19 Unknown Rx dilTIAZem CD [Cardizem CD] 120 mg PO QDAY #30 capsule 07/15/19 Unknown Rx Amoxicillin/Potassium Clav 1 each PO Q12H #20 tablet 12/04/20 Unknown Rx [Augmentin 875-125 Tablet] Benzonatate [Tessalon Perles] 100 mg PO Q8HR #30 capsule 12/04/20 Unknown Rx Cetirizine HCl [Zyrtec 10mg tab] 10 mg PO DAILY #30 tablet 12/04/20 Unknown Rx Ibuprofen [Motrin] 800 mg PO Q8HR PRN #30 tablet 12/04/20 Unknown Rx Lidocaine Viscous 2% 10 ml PO Q6H PRN #120 ml 09/03/21 Unknown Rx Allergies Allergy/AdvReac Type Severity Reaction Status Date / Time No Known Allergies Allergy Verified 07/19/19 15:25 ED Review of Systems ROS: Stated complaint: SORE THROAT Other details as noted in HPI Constitutional: denies: chills, fever Eyes: denies: eye pain, eye discharge, vision change ENT: ear pain (Bilateral ear pain), congestion. denies: throat pain Respiratory: cough. denies: shortness of breath, wheezing Cardiovascular: denies: chest pain, palpitations Endocrine: no symptoms reported Gastrointestinal: denies: abdominal pain, nausea, vomiting, diarrhea Genitourinary: denies: urgency, dysuria, discharge Musculoskeletal: denies: back pain, joint swelling, arthralgia Skin: denies: rash, lesions Neurological: denies: headache, weakness, paresthesias Psychiatric: denies: anxiety, depression Hematological/Lymphatic: denies: easy bleeding, easy bruising ED Past Medical Hx - Past Medical History Previous Medical History?: Yes Hx Hypertension: Yes Hx Congestive Heart Failure: No Hx Diabetes: Yes (history of diabetes per patient but has since resolved) Hx Asthma: No Hx COPD: No Additional medical history: SVT 07/2019 - Surgical History Past Surgical History?: Yes Hx Cholecystectomy: Yes - Social History Smoking Status: Never Smoker Substance Use Type: None - Medications Home Medications: Home Medications Medication Instructions Recorded Confirmed Last Taken Type Acetaminophen [Acetaminophen TAB] 325 mg PO Q4H PRN #15 tablet 07/15/19 Unknown Rx Famotidine [Pepcid] 20 mg PO BID #30 tablet 07/15/19 Unknown Rx dilTIAZem CD [Cardizem CD] 120 mg PO QDAY #30 capsule 07/15/19 Unknown Rx Amoxicillin/Potassium Clav 1 each PO Q12H #20 tablet 12/04/20 Unknown Rx [Augmentin 875-125 Tablet] Benzonatate [Tessalon Perles] 100 mg PO Q8HR #30 capsule 12/04/20 Unknown Rx Cetirizine HCl [Zyrtec 10mg tab] 10 mg PO DAILY #30 tablet 12/04/20 Unknown Rx Ibuprofen [Motrin] 800 mg PO Q8HR PRN #30 tablet 12/04/20 Unknown Rx Lidocaine Viscous 2% 10 ml PO Q6H PRN #120 ml 12/04/20 Unknown Rx ED Physical Exam - General Limitations: No Limitations General appearance: alert, in no apparent distress - Head Head exam: Present: atraumatic, normocephalic, normal inspection - Eye Eye exam: Present: normal appearance, PERRL, EOMI Pupils: Present: normal accommodation - ENT ENT exam: Present: mucous membranes moist, TM's normal bilaterally, normal external ear exam, other (Mild erythematous oropharynx and tonsils; grossly congested nasal passages) - Neck Neck exam: Present: normal inspection, full ROM - Respiratory Respiratory exam: Present: normal lung sounds bilaterally. Absent: respiratory distress, wheezes, rales, rhonchi, stridor, chest wall tenderness, accessory muscle use, decreased breath sounds, prolonged expiratory - Cardiovascular Cardiovascular Exam: Present: regular rate, normal rhythm, normal heart sounds. Absent: systolic murmur, diastolic murmur, rubs, gallop - GI/Abdominal GI/Abdominal exam: Present: soft, normal bowel sounds. Absent: tenderness, guarding, rebound, hyperactive bowel sounds, hypoactive bowel sounds, organomegaly - Extremities Exam Extremities exam: Present: normal inspection, full ROM, normal capillary refill - Back Exam Back exam: Present: normal inspection, full ROM. Absent: tenderness, CVA tenderness (R), CVA tenderness (L), muscle spasm - Neurological Exam Neurological exam: Present: alert, oriented X3, CN II-XII intact, normal gait, reflexes normal - Psychiatric Psychiatric exam: Present: normal affect, normal mood - Skin Skin exam: Present: warm, dry, intact, normal color. Absent: rash ED Course Vital Signs 12/03/20 20:47 Temperature 98.3 F Pulse Rate 75 Respiratory 20 Rate Blood Pressure 146/83 O2 Sat by Pulse 100 Oximetry ED Medical Decision Making - Radiology Data Radiology results: report reviewed - Medical Decision Making This is a 50-year-old -[place] female with a history of morbid obesity, hypertension, nia-ptcyjwz-krxpmjwpc diabetes and SVT s/p ablation who presents to the ED with complaint of acute onset persistent nasal and sinus congestion, frontal sinus pressure and headache, sore throat, bilateral ear pain and mild dry cough for the last 3 days. Patient states that she has been taking ybbc-ltu-xbjjeut medications with no relief. Patient states that no one else at home has had similar symptoms. Patient states that she is fully vaccinated against COVID-19 viral infection. In the ED, patient is alert and oriented x3 and is not in any distress. Patient was discharged home on medications based on history and physical exam findings. Patient was advised to follow-up with her primary care physician in 5 to 7 days for reevaluation. Patient was advised return to the ED immediately if symptoms get worse. - Differential Diagnosis Sinusitis; bronchitis; URI; pharyngitis; otitis media Critical care attestation.: If time is entered above; I have spent that time in minutes in the direct care of this critically ill patient, excluding procedure time. ED Disposition Clinical Impression: Acute upper respiratory infection Acute pharyngitis Qualifiers: Pharyngitis/tonsillitis etiology: other specified organisms Qualified Code(s): J02.8 - Acute pharyngitis due to other specified organisms Acute bronchitis Qualifiers: Bronchitis organism: other organism Qualified Code(s): J20.8 - Acute bronchitis due to other specified organisms Disposition: 01 HOME / SELF CARE / HOMELESS Is pt being admited?: No Does the pt Need Aspirin: No Condition: Stable Instructions: Acute Bronchitis, Adult, Kclg-ub-Bhyw, Upper Respiratory Infection, Adult, Dqso-yf-Pdnp, Pharyngitis, Pzum-pu-Giat, Acute Bronchitis (ED) Additional Instructions: Take medication with food, drink plenty of fluids and follow-up with your primary care physician in 7 to 10 days for reevaluation. Return to the ED immediately if symptoms get worse. Prescriptions: Amoxicillin/Potassium Clav [Augmentin 875-125 Tablet] 1 each PO Q12H #20 tablet Lidocaine Viscous 2% 10 ml PO Q6H PRN #120 ml PRN Reason: Sore Throat Ibuprofen [Motrin] 800 mg PO Q8HR PRN #30 tablet PRN Reason: Pain , Severe (7-10) Benzonatate [Tessalon Perles] 100 mg PO Q8HR #30 capsule Cetirizine HCl [Zyrtec 10mg tab] 10 mg PO DAILY #30 tablet Referrals: [facility] [Provider Group] - 7-10 days Time of Disposition: 02:18 Print Language: BHUTANESE
== END 2020-12-04 02:35 | disposition home or self-care (01) ==
LOC: ED 20:10
DX: J06.9 Acute upper respiratory infection, unspecified (principal); J02.8 Acute pharyngitis due to other specified organisms; J20.8 Acute bronchitis due to other specified organisms; E11.8 Type 2 diabetes mellitus with unspecified complications; I47.1 Supraventricular tachycardia; Z98.890 Other specified postprocedural states
CPT/HCPCS: 99281

== ENCOUNTER 2021-07-13 14:56 | Emergency (ER) | payer MEDICAID ==
[2021-07-13 16:06] VITALS: BP 115/69
--- NOTE | 2021-07-13 16:46 | Emergency Department Report ---
ED General Adult HPI - General Chief complaint: GI Bleed Stated complaint: BLEEDING HEMORRHOIDS Time Seen by Provider: 07/13/21 16:32 Source: patient Mode of arrival: Ambulatory Limitations: No Limitations - History of Present Illness Initial comments: Patient is a 51-year-old female who presents with rectal bleeding that occurred yesterday. Patient states that she has a hemorrhoid that is been bleeding she states this occurred after a cleanse. She states she has some blood when she wipes. She has been using Preparation H pads but has not done any sitz bath for this. Patient denies having any other symptoms Severity scale (0 -10): 8 - Related Data Previous Rx's Medication Instructions Recorded Last Taken Type Acetaminophen [Acetaminophen TAB] 325 mg PO Q4H PRN #15 tablet 07/15/19 Unknown Rx Famotidine [Pepcid] 20 mg PO BID #30 tablet 07/15/19 Unknown Rx dilTIAZem CD [Cardizem CD] 120 mg PO QDAY #30 capsule 07/15/19 Unknown Rx Amoxicillin/Potassium Clav 1 each PO Q12H #20 tablet 12/04/20 Unknown Rx [Augmentin 875-125 Tablet] Benzonatate [Tessalon Perles] 100 mg PO Q8HR #30 capsule 12/04/20 Unknown Rx Cetirizine HCl [Zyrtec 10mg tab] 10 mg PO DAILY #30 tablet 12/04/20 Unknown Rx Ibuprofen [Motrin] 800 mg PO Q8HR PRN #30 tablet 12/04/20 Unknown Rx Lidocaine Viscous 2% 10 ml PO Q6H PRN #120 ml 12/04/20 Unknown Rx Hydrocortisone [Hydrocortisone 30 gm RC PRN PRN #30 g 07/13/21 Unknown Rx 2.5% RECTAL CREAM] Allergies Allergy/AdvReac Type Severity Reaction Status Date / Time No Known Allergies Allergy Verified 07/19/19 15:25 ED Review of Systems ROS: Stated complaint: BLEEDING HEMORRHOIDS Other details as noted in HPI Constitutional: denies: chills, fever Eyes: denies: eye pain, eye discharge, vision change ENT: denies: ear pain, throat pain Respiratory: denies: cough, shortness of breath, wheezing Cardiovascular: denies: chest pain, palpitations Endocrine: no symptoms reported Gastrointestinal: as per HPI. denies: abdominal pain, nausea, diarrhea Genitourinary: denies: urgency, dysuria, discharge Musculoskeletal: denies: back pain, joint swelling, arthralgia Skin: denies: rash, lesions Neurological: denies: headache, weakness, paresthesias Psychiatric: denies: anxiety, depression Hematological/Lymphatic: denies: easy bleeding, easy bruising ED Past Medical Hx - Past Medical History Previous Medical History?: Yes Hx Hypertension: Yes Hx Congestive Heart Failure: No Hx Diabetes: Yes (history of diabetes per patient but has since resolved) Hx Asthma: No Hx COPD: No Additional medical history: SVT 07/2019 - Surgical History Past Surgical History?: Yes Hx Cholecystectomy: Yes - Social History Smoking Status: Never Smoker Substance Use Type: None - Medications Home Medications: Home Medications Medication Instructions Recorded Confirmed Last Taken Type Acetaminophen [Acetaminophen TAB] 325 mg PO Q4H PRN #15 tablet 07/15/19 Unknown Rx Famotidine [Pepcid] 20 mg PO BID #30 tablet 07/15/19 Unknown Rx dilTIAZem CD [Cardizem CD] 120 mg PO QDAY #30 capsule 07/15/19 Unknown Rx Amoxicillin/Potassium Clav 1 each PO Q12H #20 tablet 12/04/20 Unknown Rx [Augmentin 875-125 Tablet] Benzonatate [Tessalon Perles] 100 mg PO Q8HR #30 capsule 12/04/20 Unknown Rx Cetirizine HCl [Zyrtec 10mg tab] 10 mg PO DAILY #30 tablet 12/04/20 Unknown Rx Ibuprofen [Motrin] 800 mg PO Q8HR PRN #30 tablet 12/04/20 Unknown Rx Lidocaine Viscous 2% 10 ml PO Q6H PRN #120 ml 12/04/20 Unknown Rx Hydrocortisone [Hydrocortisone 30 gm RC PRN PRN #30 g 07/13/21 Unknown Rx 2.5% RECTAL CREAM] ED Physical Exam - General Limitations: No Limitations General appearance: alert, in no apparent distress - Head Head exam: Present: atraumatic, normocephalic - Eye Eye exam: Present: normal appearance - ENT ENT exam: Present: mucous membranes moist - Neck Neck exam: Present: normal inspection - Respiratory Respiratory exam: Present: normal lung sounds bilaterally. Absent: respiratory distress - Cardiovascular Cardiovascular Exam: Present: regular rate, normal rhythm. Absent: systolic murmur, diastolic murmur, rubs, gallop - GI/Abdominal GI/Abdominal exam: Present: soft, normal bowel sounds - Rectal Rectal exam: Present: other (Patient has an external hemorrhoid with slight bleeding) - Extremities Exam Extremities exam: Present: normal inspection - Back Exam Back exam: Present: normal inspection - Neurological Exam Neurological exam: Present: alert, oriented X3 - Psychiatric Psychiatric exam: Present: normal affect, normal mood - Skin Skin exam: Present: warm, dry, intact, normal color. Absent: rash ED Course Vital Signs 07/13/21 16:03 Temperature 98.5 F Pulse Rate 93 H Respiratory 18 Rate Blood Pressure 115/69 [Right] O2 Sat by Pulse 99 Oximetry ED Medical Decision Making - Medical Decision Making Chief medical diagnosis: External hemorrhoid Differential medical diagnosis: Internal hemorrhoid, anal fissure I will do rectal exam patient has external hemorrhoid occurred 1 day ago discussed with patient that we can incise and drain her hemorrhoid she does not want that gave patient instructions on sitz bath's and will gave Anusol suppositories and will give follow-up with a GI doctor. Also gave patient instructions on how to add fiber into her diet. Patient agrees with plan for discharge additional verbal discharge instructions were given Critical care attestation.: If time is entered above; I have spent that time in minutes in the direct care of this critically ill patient, excluding procedure time. ED Disposition Clinical Impression: External hemorrhoid, bleeding Disposition: 01 HOME / SELF CARE / HOMELESS Is pt being admited?: No Does the pt Need Aspirin: No Condition: Stable Additional Instructions: Take a sitz bath in your bathtub or buy one from your pharmacy Prescriptions: Hydrocortisone [Hydrocortisone 2.5% RECTAL CREAM] 30 gm RC PRN PRN #30 g PRN Reason: Bowel Movement Referrals: BRYSON COTTER MD [Staff Physician] - 3-5 Days
== END 2021-07-13 18:05 | disposition home or self-care (01) ==
LOC: ED 14:56
DX: K64.4 Residual hemorrhoidal skin tags (principal); I10 Essential (primary) hypertension; E11.9 Type 2 diabetes mellitus without complications; Z90.49 Acquired absence of other specified parts of digestive tract
CPT/HCPCS: 99281